=== PATIENT | female | born 1990 | race Caucasian/White ===

== ENCOUNTER 2016-08-09 15:50 | Inpatient (IN) | payer BC, MEDICAID ==
[~2016-08-09] VITALS: Ht 172.7 cm; Wt 100.5 kg
[2016-08-09] VITALS (18 sets, daily range): BP systolic 106–167; BP diastolic 53–100; PULSE 77–113; TEMP 97.8–98.6
[~2016-08-09 15:50] MED LIST: BACTRIM DS 8001 TAB PO; CEPHALEXIN500 M1 PO; CLINDAMYCIN HC150 MG PO; FAMVIR250 MG PO; MACROBID 1100 MG/CAP PO; MACROBID100 MG PO; NO HOME MEDICATIONS; PERCOCET 500 MG1 TAB PO; PERIDEX (CHLOR480 ML MM; PRENATAL VITAMI1 TA5 PO; PRENATAL1 TA7 PO; PYRIDIUM 100MG100 MG PO; PYRIDIUM200 M1 PO
[2016-08-09 16:48] LABS: BASO % 0.2 % (0.0-2.0); EOS # 0.1 (0.0-0.7); EOS % 1.4 % (0-4.0); GRAN # 5.7 (1.4-6.5); GRAN % 68.7 % (42.2-75.2); LYMPH # 1.9 (1.2-3.4); LYMPH % 23.2 % (20.0-51.0); MEAN CELL VOLUME 84 fl (80.0-100.0); MEAN CORPUSCULAR HGB CONC 34 g/dl (33.0-37.0); MEAN PLATELET VOLUME 11.1 fl (7.4-10.4); MONO # 0.5 (0.1-0.6); PLATELET COUNT 181 K/mm3 (130-400); RED BLOOD COUNT 4.11 M/mm3 (4.10-5.30); REDCELL DISTRIBUTION WIDTH-CV 13.2 % (11.5-14.5); WHITE BLOOD COUNT 8.3 K/mm3 (4.8-10.8)
[2016-08-09 16:50] LABS: HEMATOCRIT 34.7 % (37.0-47.0); HEMOGLOBIN 11.9 g/dl (12.5-16.0); MEAN CORPUSCULAR HEMOGLOBIN 29 pg (27.0-31.0)
[2016-08-10 02:10] VITALS: BP 120/59; PULSE 77; TEMP 97.5
[2016-08-10 20:00] VITALS: BP 121/77; PULSE 68; TEMP 97.9
[2016-08-11] MEDS ORDERED: IBU800 M1 PO (07:40)
[2016-08-11] MEDS ORDERED: PERCOCET 325 MG1 TA2 PO (07:40)
[2016-08-11 09:00] VITALS: BP 127/86; PULSE 69; TEMP 97.8
== END 2016-08-11 16:25 | disposition home or self-care (01) | DRG 775 ==
LOC: LDRO 15:50 → LDR 15:54 → LDRO 16:20 → OB 16:22 → LDR 16:22 → OB 21:15 → LDRO 08-14 14:25
PROVIDERS: Obstetrics & Gynecology
PROC: 10E0XZZ Delivery of Products of Conception, External Approach (ICD-10-PCS; principal; 2016-08-09)
DX: O69.81X0 Labor and delivery complicated by cord around neck, without compression, not applicable or unspecified (principal); O36.0130 Maternal care for anti-D [Rh] antibodies, third trimester, not applicable or unspecified; O99.824 Streptococcus B carrier state complicating childbirth; Z3A.39 39 weeks gestation of pregnancy; Z37.0 Single live birth
CPT/HCPCS: J0690; J2590; J2791; J7120

== ENCOUNTER 2016-08-24 00:08 | Emergency (ER) | payer BC, MEDICAID ==
[~2016-08-24] VITALS: Ht 172.7 cm; Wt 86.4 kg
[~2016-08-24 00:08] MED LIST changes: +IBU800 M1 PO; +PERCOCET 325 MG1 TA2 PO
[2016-08-24 00:50] LABS: BASO % 0.4 % (0.0-2.0); EOS # 0.3 (0.0-0.7); EOS % 3.3 % (0-4.0); GRAN # 4.5 (1.4-6.5); GRAN % 57.3 % (42.2-75.2); HEMATOCRIT 39.8 % (37.0-47.0); HEMOGLOBIN 13.3 g/dl (12.5-16.0); LYMPH # 2.7 (1.2-3.4); LYMPH % 33.8 % (20.0-51.0); MEAN CELL VOLUME 87 fl (80.0-100.0); MEAN CORPUSCULAR HEMOGLOBIN 29 pg (27.0-31.0); MEAN CORPUSCULAR HGB CONC 33 g/dl (33.0-37.0); MEAN PLATELET VOLUME 10.6 fl (7.4-10.4); MONO # 0.4 (0.1-0.6); MONO % 4.9 % (1.7-9.3); PLATELET COUNT 217 K/mm3 (130-400); REDCELL DISTRIBUTION WIDTH-CV 12.5 % (11.5-14.5); WHITE BLOOD COUNT 7.9 K/mm3 (4.8-10.8)
[2016-08-24 01:00] LABS: ADJUSTED CALCIUM 9.7 mg/dL (8.4-10.2); ALBUMIN 3.7 gm/dL (3.5-5.0); BILIRUBIN,TOTAL 0.6 mg/dL (0.0-1.0); CALCIUM 9.5 mg/dL (8.4-10.2); CREATININE, serum 0.62 mg/dL (0.52-1.25); POTASSIUM 3.5 mmol/L (3.4-5.0); TOTAL PROTEIN 7.2 gm/dL (6.4-8.2)
[2016-08-24 01:18] VITALS: BP 110/87; PULSE 92; TEMP 97.1
== END 2016-08-24 01:19 | disposition home or self-care (01) ==
LOC: COL.ER 00:08
PROVIDERS: Physician Assistant
DX: O72.2 Delayed and secondary postpartum hemorrhage (principal)

== ENCOUNTER 2016-11-03 01:39 | Emergency (ER) | payer BC, MEDICAID ==
[~2016-11-03] VITALS: Ht 172.7 cm; Wt 86.4 kg
[2016-11-03 01:45] VITALS: TEMP 97.5
[2016-11-03 02:20] LABS: PH 6 (5-8); SQUAMOUS EPITHELIAL 0-2 /hpf; URINE APPEARANCE Clear; URINE BACTERIA None Seen /hpf; URINE BILIRUBIN Negative (NEGATIVE); URINE BLOOD Negative (NEGATIVE); URINE COLOR Amber; URINE GLUCOSE Negative (NEGATIVE); URINE KETONE Negative (NEGATIVE); URINE UROBILINOGEN >=4.0 mg/dL (NEGATIVE)
[2016-11-03 02:21] LABS: URINE WBC 20-50 /hpf
[2016-11-03] MEDS ORDERED: MACROBID 1100 MG/CAP PO (02:31)
[2016-11-03 02:44] VITALS: BP 101/84; PULSE 72
== END 2016-11-03 02:44 | disposition home or self-care (01) ==
LOC: COL.ER 01:39
PROVIDERS: Family Medicine
DX: N30.01 Acute cystitis with hematuria (principal)

== ENCOUNTER 2016-12-13 21:23 | Emergency (ER) | payer BC, MEDICAID ==
[~2016-12-13] VITALS: Ht 172.7 cm; Wt 84.1 kg
[2016-12-13 21:31] VITALS: TEMP 97.8
[2016-12-13] MEDS ORDERED: CLARITIN 1010 MG/TAB PO (21:34)
[2016-12-13 22:25] LABS: COLLECTION METHOD CLEAN CATCH
[2016-12-13 22:28] LABS: BASO % 0.3 % (0.0-2.0); EOS # 0.3 (0.0-0.7); EOS % 4.3 % (0-4.0); GRAN # 3.3 (1.4-6.5); GRAN % 50.4 % (42.2-75.2); HEMATOCRIT 36.5 % (37.0-47.0); LYMPH # 2.5 (1.2-3.4); LYMPH % 38.2 % (20.0-51.0); MEAN CELL VOLUME 86 fl (80.0-100.0); MEAN CORPUSCULAR HEMOGLOBIN 28 pg (27.0-31.0); MEAN CORPUSCULAR HGB CONC 33 g/dl (33.0-37.0); MEAN PLATELET VOLUME 10.8 fl (7.4-10.4); MONO # 0.4 (0.1-0.6); MONO % 6.6 % (1.7-9.3); PLATELET COUNT 184 K/mm3 (130-400); RED BLOOD COUNT 4.26 M/mm3 (4.10-5.30); WHITE BLOOD COUNT 6.5 K/mm3 (4.8-10.8)
[2016-12-13 22:31] LABS: PH 7 (5-8); SQUAMOUS EPITHELIAL 0-2 /hpf; URINE APPEARANCE Clear; URINE BACTERIA None Seen /hpf; URINE BILIRUBIN Negative (NEGATIVE); URINE BLOOD 1+ (NEGATIVE); URINE COLOR Amber; URINE GLUCOSE Negative (NEGATIVE); URINE KETONE Negative (NEGATIVE); URINE LEUKOCYTE ESTERASE Negative (NEGATIVE); URINE PROTEIN(semi-quant) Negative (NEGATIVE); URINE RBC 0-2 /hpf; URINE UROBILINOGEN >=4.0 mg/dL (NEGATIVE); URINE WBC 0-2 /hpf
[2016-12-13 22:38] LABS: ADJUSTED CALCIUM 8.6 mg/dL (8.4-10.2); ALBUMIN 4.2 gm/dL (3.5-5.0); BILIRUBIN,TOTAL 0.6 mg/dL (0.0-1.0); CALCIUM 8.8 mg/dL (8.4-10.2); CREATININE, serum 0.96 mg/dL (0.52-1.25); POTASSIUM 3.7 mmol/L (3.4-5.0); TOTAL PROTEIN 7.2 gm/dL (6.4-8.2)
[2016-12-14 00:30] VITALS: BP 128/85; PULSE 71
== END 2016-12-14 01:23 | disposition home or self-care (01) ==
LOC: COL.ER 21:23 → SURG 12-14 00:08 → COL.ER 12-14 01:23
PROVIDERS: Emergency Medicine
DX: N13.2 Hydronephrosis with renal and ureteral calculous obstruction (principal)
CPT/HCPCS: J1885; J3010; J7030; Q9967

== ENCOUNTER → 2017-02-11 | Outpatient (CLI) | payer OTHER ==
[~2017-02-11] MED LIST changes: +CLARITIN 1010 MG/TAB PO
== END ==
LOC: COL.RAD 16:50
DX: N20.2 Calculus of kidney with calculus of ureter (principal)